=== PATIENT | female | born 1935 | race Caucasian/White ===

== ENCOUNTER 2019-05-03 10:00 | Day surgery (SDC) | payer BC ==
[2019-05-02 16:31] VITALS: BMI 25.7
[2019-05-03 12:10] VITALS: TEMP 97.9
--- NOTE | 2019-05-03 14:23 | EKG ---
Test Reason : Blood Pressure : / mmHG Vent. Rate : 062 BPM Atrial Rate : 062 BPM P-R Int : 186 ms QRS Dur : 140 ms QT Int : 434 ms P-R-T Axes : 081 -59 016 degrees QTc Int : 440 ms NORMAL SINUS RHYTHM RIGHT BUNDLE BRANCH BLOCK LEFT ANTERIOR FASCICULAR BLOCK BIFASCICULAR BLOCK ABNORMAL ECG NO PREVIOUS ECGS AVAILABLE Confirmed by FAROOQ FRAZIER, MEETA ([id number]) on 05/03/2019 2:23:02 PM Referred By: JORGE ALBERTO BRUNNER DR Confirmed By:MEETA TRIVEDI MD
[2019-05-03 15:10] VITALS: BP 156/76; PULSE 76
--- NOTE | 2019-05-04 17:49 | PATH ---
Surgical Pathology Report Patient Name: SATYA CORREA [facility]. Rec. #: [id number] /Age/Gender: 1935 (Age: 84) / F Account: [id number] Location: [facility]-ENDOSCOPY Taken: 05/03/2019 Received: 05/03/2019 Reported: 05/04/2019 Physicians: Cheyanne Dutta M.D. Specimen(s) Received RIGHT COLON POLYPS Clinical History Positive cologuard Final Diagnosis COLON, RIGHT, POLYPS, BIOPSY/POLYPECTOMY: TUBULAR ADENOMA(S). HYPERPLASTIC POLYP(S). Electronically Signed aMrsha Sellers M.D. Gross Description Received in formalin labeled "right colon polyps biopsy," is a 0.8 x 0.6 x 0.1 cm aggregate of roldan soft tissue fragments. The formalin is filtered and the specimen is entirely submitted in one cassette. /05/03/2019 saudi05/03/2019
== END 2019-05-03 13:30 | disposition home or self-care (01) ==
LOC: JASU-ENDO 10:00
PROVIDERS: ATTEND Internal Medicine Gastroenterology
PROC: 0DBK8ZX Excision of Ascending Colon, Via Natural or Artificial Opening Endoscopic, Diagnostic (ICD-10-PCS; principal; 2019-05-03 10:45)
DX: K64.8 Other hemorrhoids (principal); D12.2 Benign neoplasm of ascending colon; K57.30 Diverticulosis of large intestine without perforation or abscess without bleeding
CPT/HCPCS: 93005; 93010

== ENCOUNTER 2022-02-05 10:33 | Inpatient (IN) | payer BC ==
[2022-02-05 12:38] LABS: BASO % 0.7 % (0-2.0); EOS % 1.3 % (0-4.5); HEMATOCRIT 37.3 % (32.4-45.2); HEMOGLOBIN 12.5 GM/dL (10.7-15.3); MCH 28.2 pg (25.7-33.7); MCHC 33.4 g/dl (32.0-36.0); MEAN CELL VOLUME 84.5 fl (80-96); MEAN PLT VOLUME 10.3 fl (7.5-11.1); MONO % 8.1 % (3.8-10.2); NEUT % 70.9 % (42.8-82.8); RBC 4.41 M/mm3 (3.60-5.2); RDW 15.5 % (11.6-15.6); WHITE BLOOD COUNT 6.3 K/mm3 (4.0-10.0)
[2022-02-05 12:51] LABS: ACTIVATED PTT 23.1 SECONDS (25.2-36.5); INR 1.03 (0.83-1.09); PROTHROMBIN TIME (PATIENT) 11.8 SEC (9.7-13.0)
[2022-02-05 13:07] LABS: ALBUMIN 3.4 g/dl (3.4-5.0); BLOOD UREA NITROGEN 18.7 mg/dL (7-18); CALCIUM 8.8 mg/dL (8.5-10.1)
[2022-02-05 13:10] LABS: CREATININE 0.9 mg/dL (0.55-1.3)
[2022-02-05 13:12] LABS: BILIRUBIN,TOTAL 1.4 mg/dL (0.2-1); TOT PROT 7.1 g/dl (6.4-8.2)
[2022-02-05] MEDS ORDERED: LIDOCAINE HCL 2% (50ML VIAL) SQ ONE (13:27)
[2022-02-05] MEDS ORDERED: methylPREDNISolone NA SUCC 125 MG/2 ML VIAL IVPUSH ONE (13:28)
[2022-02-05 15:55] LABS: PLATELET COUNT 18 10^3/uL (134-434)
[2022-02-05] MEDS ORDERED: LISINOPRIL 10 MG TABLET PO ONE (17:56)
[2022-02-05 18:38] VITALS: BMI 26.4
[2022-02-05] MEDS ORDERED: DEXAMETHASONE 4 MG TABLET (FP) PO ONE (20:30)
[2022-02-05] MEDS ORDERED: amLODIPine BESYLATE 5 MG TABLET (FP) PO SCH (20:30)
[2022-02-05] MEDS: amLODIPine BESYLATE 2.5 MG TABLET (FP) PO SCH (20:33)
[2022-02-05] MEDS: GABAPENTIN 300 MG CAPSULE PO SCH (21:27)
[2022-02-05] MEDS: ATORVASTATIN CA 10 MG TABLET (FP) PO SCH (21:27)
[2022-02-05] MEDS: MELATONIN 5 MG TABLETS PO PRN (22:33)
[2022-02-06] MEDS: GABAPENTIN 300 MG CAPSULE PO SCH ×3 (06:27→22:30)
[2022-02-06] MEDS: SERTRALINE HCL 25 MG TABLET (FP) PO SCH (10:46)
[2022-02-06] MEDS: MEMANTINE HCL 10 MG TABLET (FP) PO SCH (10:46)
[2022-02-06] MEDS: amLODIPine BESYLATE 2.5 MG TABLET (FP) PO SCH (10:46)
[2022-02-06] MEDS: LISINOPRIL 10 MG TABLET PO SCH ×2 (10:46→22:29)
[2022-02-06] MEDS: DONEPEZIL HCL 10 MG TABLET (FP) PO SCH (10:46)
[2022-02-06 11:46] LABS: INR 1.08 (0.83-1.09); PROTHROMBIN TIME (PATIENT) 12.4 SEC (9.7-13.0)
[2022-02-06 11:48] LABS: HEMATOCRIT 34.8 % (32.4-45.2); HEMOGLOBIN 11.6 GM/dL (10.7-15.3); MCH 28.6 pg (25.7-33.7); MCHC 33.4 g/dl (32.0-36.0); MEAN CELL VOLUME 85.8 fl (80-96); MEAN PLT VOLUME 10.7 fl (7.5-11.1); RBC 4.05 M/mm3 (3.60-5.2); RDW 15.2 % (11.6-15.6); WHITE BLOOD COUNT 7.5 K/mm3 (4.0-10.0)
[2022-02-06 11:49] LABS: ACTIVATED PTT 24.4 SECONDS (25.2-36.5)
[2022-02-06 11:58] LABS: PLATELET COUNT 12 10^3/uL (134-434)
[2022-02-06 12:15] LABS: ALBUMIN 3.8 g/dl (3.4-5.0); BLOOD UREA NITROGEN 24.1 mg/dL (7-18); CALCIUM 8.9 mg/dL (8.5-10.1); MAGNESIUM 2.1 mg/dL (1.8-2.4)
[2022-02-06 12:18] LABS: PHOSPHOROUS 3.2 mg/dL (2.5-4.9)
[2022-02-06 12:19] LABS: BILIRUBIN,TOTAL 1.6 mg/dL (0.2-1); TOT PROT 7.8 g/dl (6.4-8.2)
[2022-02-06] MEDS ORDERED: DEXAMETHASONE 4 MG TABLET (FP) PO ONE (12:35)
[2022-02-06 13:10] LABS: HIV INTERPRETATION NEGATIVE (NEGATIVE)
[2022-02-06 13:16] LABS: ANISOCYTOSIS 0; MACROCYTOSIS 1+
[2022-02-06] MEDS: SIMETHICONE 80 MG TAB.CHEW (FP) PO PRN (22:30)
[2022-02-06] MEDS: ATORVASTATIN CA 10 MG TABLET (FP) PO SCH (22:30)
[2022-02-06] MEDS: MELATONIN 5 MG TABLETS PO PRN (22:30)
[2022-02-07] MEDS: GABAPENTIN 300 MG CAPSULE PO SCH ×3 (05:35→21:26)
[2022-02-07] MEDS: DEXAMETHASONE 4 MG TABLET (FP) PO SCH (10:11)
[2022-02-07] MEDS: LISINOPRIL 10 MG TABLET PO SCH ×2 (10:11→21:26)
[2022-02-07] MEDS: DONEPEZIL HCL 10 MG TABLET (FP) PO SCH (10:11)
[2022-02-07] MEDS: SERTRALINE HCL 25 MG TABLET (FP) PO SCH (10:11)
[2022-02-07] MEDS: amLODIPine BESYLATE 2.5 MG TABLET (FP) PO SCH (10:12)
[2022-02-07] MEDS: MEMANTINE HCL 10 MG TABLET (FP) PO SCH (10:12)
[2022-02-07 13:01] LABS: BASO % 0.1 % (0-2.0); HEMATOCRIT 31.1 % (32.4-45.2); HEMOGLOBIN 10.5 GM/dL (10.7-15.3); LYMPH % 9.9 % (8-40); MCH 28.9 pg (25.7-33.7); MCHC 33.9 g/dl (32.0-36.0); MEAN CELL VOLUME 85.3 fl (80-96); MONO % 11.7 % (3.8-10.2); NEUT % 78.3 % (42.8-82.8); RBC 3.64 M/mm3 (3.60-5.2); RDW 15.6 % (11.6-15.6)
[2022-02-07 13:07] LABS: CHLORIDE 108 mmol/L (98-107); SODIUM 141 mmol/L (136-145)
[2022-02-07 13:11] LABS: ANION GAP 7 MMOL/L (8-16); BLOOD UREA NITROGEN 31.3 mg/dL (7-18); CALCIUM 8.6 mg/dL (8.5-10.1); CO2 25 mmol/L (21-32); GLUCOSE,RANDOM 110 mg/dL (74-106)
[2022-02-07 13:12] LABS: ALBUMIN 3.4 g/dl (3.4-5.0)
[2022-02-07 13:14] LABS: CREATININE 0.9 mg/dL (0.55-1.3); SGOT/AST 23 U/L (15-37); SGPT/ALT 23 U/L (13-61)
[2022-02-07 13:17] LABS: ALK PHOS 55 U/L (45-117)
[2022-02-07 13:19] LABS: LDH 204 U/L (84-246)
[2022-02-07] MEDS ORDERED: PANTOPRAZOLE 20 MG TABLET PO ONE (19:58)
[2022-02-07] MEDS: ATORVASTATIN CA 10 MG TABLET (FP) PO SCH (21:26)
[2022-02-08] MEDS: GABAPENTIN 300 MG CAPSULE PO SCH ×3 (06:01→21:44)
[2022-02-08] MEDS: SERTRALINE HCL 25 MG TABLET (FP) PO SCH (10:12)
[2022-02-08] MEDS: LISINOPRIL 10 MG TABLET PO SCH ×2 (10:12→21:44)
[2022-02-08] MEDS: amLODIPine BESYLATE 2.5 MG TABLET (FP) PO SCH (10:12)
[2022-02-08] MEDS: DEXAMETHASONE 4 MG TABLET (FP) PO SCH (10:12)
[2022-02-08] MEDS: DONEPEZIL HCL 10 MG TABLET (FP) PO SCH (10:12)
[2022-02-08] MEDS: MEMANTINE HCL 10 MG TABLET (FP) PO SCH (10:12)
[2022-02-08 10:33] LABS: HEMOGLOBIN 10.7 GM/dL (10.7-15.3); LYMPH % 13.3 % (8-40); MCH 28.3 pg (25.7-33.7); MCHC 33.4 g/dl (32.0-36.0); MEAN CELL VOLUME 84.6 fl (80-96); MEAN PLT VOLUME 10.9 fl (7.5-11.1); MONO % 10.1 % (3.8-10.2); NEUT % 76.6 % (42.8-82.8); RBC 3.78 M/mm3 (3.60-5.2); RDW 15.6 % (11.6-15.6)
[2022-02-08 11:03] LABS: CALCIUM 8.6 mg/dL (8.5-10.1)
[2022-02-08 11:04] LABS: ALBUMIN 3.6 g/dl (3.4-5.0)
[2022-02-08 11:07] LABS: CREATININE 0.8 mg/dL (0.55-1.3); PLATELET COUNT 12 10^3/uL (134-434)
[2022-02-08 11:09] LABS: BILIRUBIN,TOTAL 0.9 mg/dL (0.2-1); TOT PROT 7.2 g/dl (6.4-8.2)
[2022-02-08] MEDS: MELATONIN 5 MG TABLETS PO PRN (21:44)
[2022-02-08] MEDS: ATORVASTATIN CA 10 MG TABLET (FP) PO SCH (21:44)
[2022-02-09] MEDS: GABAPENTIN 300 MG CAPSULE PO SCH ×3 (06:10→22:02)
[2022-02-09] MEDS: MEMANTINE HCL 10 MG TABLET (FP) PO SCH (10:39)
[2022-02-09] MEDS: LISINOPRIL 10 MG TABLET PO SCH ×2 (10:39→22:02)
[2022-02-09] MEDS: amLODIPine BESYLATE 2.5 MG TABLET (FP) PO SCH (10:39)
[2022-02-09] MEDS: SERTRALINE HCL 25 MG TABLET (FP) PO SCH (10:39)
[2022-02-09] MEDS: DONEPEZIL HCL 10 MG TABLET (FP) PO SCH (10:39)
[2022-02-09 11:00] LABS: HEMATOCRIT 30.3 % (32.4-45.2); HEMOGLOBIN 10.2 GM/dL (10.7-15.3); LYMPH % 14.7 % (8-40); MCH 28.3 pg (25.7-33.7); MCHC 33.6 g/dl (32.0-36.0); MEAN CELL VOLUME 84.2 fl (80-96); MEAN PLT VOLUME 10.4 fl (7.5-11.1); MONO % 15.8 % (3.8-10.2); NEUT % 69.5 % (42.8-82.8); RBC 3.59 M/mm3 (3.60-5.2); RDW 15.6 % (11.6-15.6); WHITE BLOOD COUNT 7.5 K/mm3 (4.0-10.0)
[2022-02-09 11:14] LABS: PLATELET COUNT 11 10^3/uL (134-434)
[2022-02-09 11:25] LABS: CALCIUM 8.5 mg/dL (8.5-10.1)
[2022-02-09 11:26] LABS: ALBUMIN 3.2 g/dl (3.4-5.0); BLOOD UREA NITROGEN 32.2 mg/dL (7-18)
[2022-02-09 11:29] LABS: CREATININE 0.8 mg/dL (0.55-1.3)
[2022-02-09 11:30] LABS: TOT PROT 6.5 g/dl (6.4-8.2)
[2022-02-09 11:31] LABS: BILIRUBIN,TOTAL 0.8 mg/dL (0.2-1)
[2022-02-09] MEDS: ATORVASTATIN CA 10 MG TABLET (FP) PO SCH (22:02)
[2022-02-09] MEDS: MELATONIN 5 MG TABLETS PO PRN (22:02)
[2022-02-09] MEDS ORDERED: GLYCERIN 1 RECTAL SUPPOSITORY, ADULT RC ONE (22:08)
[2022-02-10] MEDS: GABAPENTIN 300 MG CAPSULE PO SCH ×3 (05:41→22:28)
[2022-02-10 10:07] LABS: BASO % 0.1 % (0-2.0); EOS % 0.7 % (0-4.5); HEMATOCRIT 33.7 % (32.4-45.2); HEMOGLOBIN 11.1 GM/dL (10.7-15.3); LYMPH % 24.4 % (8-40); MCH 28.3 pg (25.7-33.7); MCHC 33.1 g/dl (32.0-36.0); MEAN CELL VOLUME 85.6 fl (80-96); MEAN PLT VOLUME 10.9 fl (7.5-11.1); MONO % 11.4 % (3.8-10.2); NEUT % 63.4 % (42.8-82.8); RBC 3.93 M/mm3 (3.60-5.2); RDW 14.8 % (11.6-15.6); WHITE BLOOD COUNT 7.6 K/mm3 (4.0-10.0)
[2022-02-10 10:11] LABS: PLATELET COUNT 9 10^3/uL (134-434)
[2022-02-10] MEDS: MEMANTINE HCL 10 MG TABLET (FP) PO SCH (10:29)
[2022-02-10] MEDS: LISINOPRIL 10 MG TABLET PO SCH ×2 (10:29→22:28)
[2022-02-10] MEDS: SERTRALINE HCL 25 MG TABLET (FP) PO SCH (10:29)
[2022-02-10] MEDS: SIMETHICONE 80 MG TAB.CHEW (FP) PO PRN (10:29)
[2022-02-10] MEDS: DONEPEZIL HCL 10 MG TABLET (FP) PO SCH (10:29)
[2022-02-10] MEDS: amLODIPine BESYLATE 2.5 MG TABLET (FP) PO SCH (10:29)
[2022-02-10 10:35] LABS: CALCIUM 8.6 mg/dL (8.5-10.1)
[2022-02-10 10:36] LABS: ALBUMIN 3.3 g/dl (3.4-5.0); BLOOD UREA NITROGEN 29.9 mg/dL (7-18); MAGNESIUM 2.2 mg/dL (1.8-2.4)
[2022-02-10 10:39] LABS: BILIRUBIN,TOTAL 0.9 mg/dL (0.2-1); CREATININE 0.8 mg/dL (0.55-1.3); PHOSPHOROUS 3.3 mg/dL (2.5-4.9)
[2022-02-10 10:40] LABS: TOT PROT 6.6 g/dl (6.4-8.2)
[2022-02-10 14:07] LABS: BABESIA MICROTI ANTIBODY IGG <1:10 (Neg:<1:10); BABESIA MICROTI ANTIBODY IGM <1:10 (Neg:<1:10)
[2022-02-10 16:08] LABS: FREE KAPPA,SERUM 35.6 mg/L (3.3-19.4)
[2022-02-10] MEDS: ATORVASTATIN CA 10 MG TABLET (FP) PO SCH (22:28)
[2022-02-11 05:37] LABS: BASO % 0.1 % (0-2.0); HEMATOCRIT 34.3 % (32.4-45.2); HEMOGLOBIN 11.4 GM/dL (10.7-15.3); LYMPH % 17.8 % (8-40); MCH 28.3 pg (25.7-33.7); MCHC 33.2 g/dl (32.0-36.0); MEAN CELL VOLUME 85.3 fl (80-96); MEAN PLT VOLUME 11.6 fl (7.5-11.1); MONO % 11.9 % (3.8-10.2); NEUT % 69.2 % (42.8-82.8); RBC 4.02 M/mm3 (3.60-5.2); RDW 15.1 % (11.6-15.6); WHITE BLOOD COUNT 7.5 K/mm3 (4.0-10.0)
[2022-02-11 06:25] LABS: PLATELET COUNT 8 10^3/uL (134-434)
[2022-02-11] MEDS: GABAPENTIN 300 MG CAPSULE PO SCH ×3 (06:25→22:36)
[2022-02-11] MEDS: DONEPEZIL HCL 10 MG TABLET (FP) PO SCH (11:18)
[2022-02-11] MEDS: amLODIPine BESYLATE 2.5 MG TABLET (FP) PO SCH (11:18)
[2022-02-11] MEDS: LISINOPRIL 10 MG TABLET PO SCH ×2 (11:18→22:34)
[2022-02-11] MEDS: SERTRALINE HCL 25 MG TABLET (FP) PO SCH (11:18)
[2022-02-11] MEDS: MEMANTINE HCL 10 MG TABLET (FP) PO SCH (11:18)
[2022-02-11] MEDS: POLYETHYLENE GLYCOL (HEALTHYLAX) 3350 17 GM PACKET PO SCH (11:18)
[2022-02-11 12:34] LABS: BASO % 0.2 % (0-2.0); EOS % 0.6 % (0-4.5); HEMATOCRIT 36.4 % (32.4-45.2); HEMOGLOBIN 12.3 GM/dL (10.7-15.3); LYMPH % 17.6 % (8-40); MCH 28.1 pg (25.7-33.7); MCHC 33.7 g/dl (32.0-36.0); MEAN CELL VOLUME 83.2 fl (80-96); MEAN PLT VOLUME 11.1 fl (7.5-11.1); NEUT % 68.6 % (42.8-82.8); RBC 4.38 M/mm3 (3.60-5.2); RDW 15.1 % (11.6-15.6); WHITE BLOOD COUNT 7.8 K/mm3 (4.0-10.0)
[2022-02-11 12:36] LABS: INR 1.14 (0.83-1.09); PROTHROMBIN TIME (PATIENT) 13.1 SEC (9.7-13.0)
[2022-02-11 12:39] LABS: PLATELET COUNT 11 10^3/uL (134-434)
[2022-02-11 13:08] LABS: ALBUMIN 3.3 g/dl (3.4-5.0); BLOOD UREA NITROGEN 24.2 mg/dL (7-18); CALCIUM 8.1 mg/dL (8.5-10.1); MAGNESIUM 1.9 mg/dL (1.8-2.4)
[2022-02-11 13:11] LABS: CREATININE 0.9 mg/dL (0.55-1.3); PHOSPHOROUS 3.2 mg/dL (2.5-4.9)
[2022-02-11 13:12] LABS: BILIRUBIN,TOTAL 1.1 mg/dL (0.2-1); TOT PROT 6.6 g/dl (6.4-8.2)
[2022-02-11] MEDS: ATORVASTATIN CA 10 MG TABLET (FP) PO SCH (22:34)
[2022-02-11] MEDS: MELATONIN 5 MG TABLETS PO PRN (22:34)
[2022-02-12] MEDS: GABAPENTIN 300 MG CAPSULE PO SCH ×3 (06:42→22:03)
[2022-02-12] MEDS: amLODIPine BESYLATE 2.5 MG TABLET (FP) PO SCH (10:42)
[2022-02-12] MEDS: MEMANTINE HCL 10 MG TABLET (FP) PO SCH (10:42)
[2022-02-12] MEDS: DONEPEZIL HCL 10 MG TABLET (FP) PO SCH (10:42)
[2022-02-12] MEDS: LISINOPRIL 10 MG TABLET PO SCH ×2 (10:42→22:03)
[2022-02-12] MEDS: SERTRALINE HCL 25 MG TABLET (FP) PO SCH (10:42)
[2022-02-12] MEDS: POLYETHYLENE GLYCOL (HEALTHYLAX) 3350 17 GM PACKET PO SCH (10:42)
[2022-02-12 12:57] LABS: BASO % 0.1 % (0-2.0); EOS % 1.5 % (0-4.5); HEMATOCRIT 34.1 % (32.4-45.2); HEMOGLOBIN 11.3 GM/dL (10.7-15.3); LYMPH % 17.3 % (8-40); MCH 27.7 pg (25.7-33.7); MCHC 33.1 g/dl (32.0-36.0); MEAN CELL VOLUME 83.6 fl (80-96); MEAN PLT VOLUME 11.4 fl (7.5-11.1); MONO % 13.7 % (3.8-10.2); NEUT % 67.4 % (42.8-82.8); RBC 4.08 M/mm3 (3.60-5.2); RDW 15.7 % (11.6-15.6); WHITE BLOOD COUNT 6.9 K/mm3 (4.0-10.0)
[2022-02-12 13:02] LABS: PLATELET COUNT 8 10^3/uL (134-434)
[2022-02-12 13:22] LABS: ALBUMIN 3.1 g/dl (3.4-5.0); BLOOD UREA NITROGEN 25.3 mg/dL (7-18); MAGNESIUM 2.2 mg/dL (1.8-2.4)
[2022-02-12 13:25] LABS: CREATININE 0.8 mg/dL (0.55-1.3); PHOSPHOROUS 2.5 mg/dL (2.5-4.9)
[2022-02-12 13:26] LABS: TOT PROT 6.3 g/dl (6.4-8.2)
[2022-02-12 16:08] LABS: HLA CLASS 1 ANTIBODY Positive (Negative)
[2022-02-12] MEDS: PANTOPRAZOLE SODIUM 40 MG VIAL IVPUSH SCH (17:54)
[2022-02-12] MEDS: ATORVASTATIN CA 10 MG TABLET (FP) PO SCH (22:03)
[2022-02-13] MEDS: GABAPENTIN 300 MG CAPSULE PO SCH ×3 (06:18→21:25)
[2022-02-13] MEDS: ATOVAQUONE 750 MG/5 ML (UNIT-DOSE PACKAGING) PO SCH (08:02)
[2022-02-13] MEDS: LISINOPRIL 10 MG TABLET PO SCH ×2 (09:19→21:25)
[2022-02-13] MEDS: MEMANTINE HCL 10 MG TABLET (FP) PO SCH (09:19)
[2022-02-13] MEDS: PANTOPRAZOLE SODIUM 40 MG VIAL IVPUSH SCH (09:20)
[2022-02-13] MEDS: POLYETHYLENE GLYCOL (HEALTHYLAX) 3350 17 GM PACKET PO SCH (09:20)
[2022-02-13] MEDS: DONEPEZIL HCL 10 MG TABLET (FP) PO SCH (09:20)
[2022-02-13] MEDS: amLODIPine BESYLATE 2.5 MG TABLET (FP) PO SCH (09:20)
[2022-02-13] MEDS: SERTRALINE HCL 25 MG TABLET (FP) PO SCH (09:20)
[2022-02-13 09:41] LABS: BASO % 0.3 % (0-2.0); HEMATOCRIT 34.7 % (32.4-45.2); HEMOGLOBIN 11.4 GM/dL (10.7-15.3); LYMPH % 18.2 % (8-40); MCH 27.5 pg (25.7-33.7); MCHC 32.7 g/dl (32.0-36.0); MEAN CELL VOLUME 84.2 fl (80-96); MEAN PLT VOLUME 11.8 fl (7.5-11.1); MONO % 14.1 % (3.8-10.2); NEUT % 63.4 % (42.8-82.8); RBC 4.12 M/mm3 (3.60-5.2); RDW 14.8 % (11.6-15.6); WHITE BLOOD COUNT 6.9 K/mm3 (4.0-10.0)
[2022-02-13] MEDS ORDERED: SULFAMETHOXAZOLE/TRIMETHOPRIM 800MG/160MG D.S. TABLET PO SCH (10:00)
[2022-02-13 10:03] LABS: PLATELET COUNT 8 10^3/uL (134-434)
[2022-02-13 10:07] LABS: CALCIUM 8.3 mg/dL (8.5-10.1)
[2022-02-13 10:08] LABS: ALBUMIN 3.3 g/dl (3.4-5.0); BLOOD UREA NITROGEN 22.4 mg/dL (7-18); MAGNESIUM 2.2 mg/dL (1.8-2.4)
[2022-02-13 10:11] LABS: CREATININE 0.9 mg/dL (0.55-1.3); PHOSPHOROUS 2.3 mg/dL (2.5-4.9)
[2022-02-13 10:12] LABS: TOT PROT 6.6 g/dl (6.4-8.2)
[2022-02-13 10:13] LABS: BILIRUBIN,TOTAL 1.2 mg/dL (0.2-1)
[2022-02-13] MEDS ORDERED: DEXAMETHASONE SOD PHOSPHATE 20 MG/5 ML VIAL IVPB SCH (12:45)
[2022-02-13] MEDS: DEXAMETHASONE SOD PHOSPHATE 10 MG/1 ML VIAL IVPB SCH (14:10)
[2022-02-13] MEDS ORDERED: NAPH,MB-DB/K PH,MBDB POWDER PACKET PO ONE (20:03)
[2022-02-13] MEDS: ATORVASTATIN CA 10 MG TABLET (FP) PO SCH (21:26)
[2022-02-14] MEDS: GABAPENTIN 300 MG CAPSULE PO SCH ×3 (06:21→22:12)
[2022-02-14 08:45] LABS: BASO % 0.2 % (0-2.0); EOS % 0.1 % (0-4.5); HEMATOCRIT 34.3 % (32.4-45.2); HEMOGLOBIN 11.2 GM/dL (10.7-15.3); LYMPH % 9.5 % (8-40); MCH 27.3 pg (25.7-33.7); MCHC 32.8 g/dl (32.0-36.0); MEAN CELL VOLUME 83.2 fl (80-96); MONO % 10.2 % (3.8-10.2); RBC 4.12 M/mm3 (3.60-5.2); RDW 14.4 % (11.6-15.6)
[2022-02-14 08:55] LABS: ALBUMIN 3.2 g/dl (3.4-5.0); BLOOD UREA NITROGEN 24.4 mg/dL (7-18); CALCIUM 8.3 mg/dL (8.5-10.1); MAGNESIUM 2.2 mg/dL (1.8-2.4)
[2022-02-14 08:58] LABS: CREATININE 0.7 mg/dL (0.55-1.3); PHOSPHOROUS 2.4 mg/dL (2.5-4.9)
[2022-02-14 09:00] LABS: BILIRUBIN,TOTAL 0.8 mg/dL (0.2-1); TOT PROT 6.8 g/dl (6.4-8.2)
[2022-02-14 09:27] LABS: PLATELET COUNT 10 10^3/uL (134-434)
[2022-02-14] MEDS: DEXAMETHASONE SOD PHOSPHATE 10 MG/1 ML VIAL IVPB SCH (09:37)
[2022-02-14] MEDS: POLYETHYLENE GLYCOL (HEALTHYLAX) 3350 17 GM PACKET PO SCH (09:37)
[2022-02-14] MEDS: amLODIPine BESYLATE 2.5 MG TABLET (FP) PO SCH (09:37)
[2022-02-14] MEDS: LISINOPRIL 10 MG TABLET PO SCH ×2 (09:37→22:12)
[2022-02-14] MEDS: PANTOPRAZOLE SODIUM 40 MG VIAL IVPUSH SCH (09:37)
[2022-02-14] MEDS: DONEPEZIL HCL 10 MG TABLET (FP) PO SCH (09:37)
[2022-02-14] MEDS: SERTRALINE HCL 25 MG TABLET (FP) PO SCH (09:38)
[2022-02-14] MEDS: ATOVAQUONE 750 MG/5 ML (UNIT-DOSE PACKAGING) PO SCH (10:02)
[2022-02-14] MEDS: MEMANTINE HCL 10 MG TABLET (FP) PO SCH (10:02)
[2022-02-14] MEDS ORDERED: NAPH,MB-DB/K PH,MBDB POWDER PACKET PO ONE (16:01)
[2022-02-14] MEDS: ATORVASTATIN CA 10 MG TABLET (FP) PO SCH (22:12)
[2022-02-15] MEDS: GABAPENTIN 300 MG CAPSULE PO SCH ×3 (05:22→21:53)
[2022-02-15] MEDS ORDERED: LISINOPRIL 20 MG TABLET PO ONE (05:58)
[2022-02-15 09:29] LABS: BASO % 0.3 % (0-2.0); EOS % 0.1 % (0-4.5); HEMOGLOBIN 11.4 GM/dL (10.7-15.3); LYMPH % 8.7 % (8-40); MCH 27.1 pg (25.7-33.7); MCHC 32.5 g/dl (32.0-36.0); MEAN CELL VOLUME 83.3 fl (80-96); MEAN PLT VOLUME 9.6 fl (7.5-11.1); NEUT % 84.9 % (42.8-82.8); RDW 15.4 % (11.6-15.6); WHITE BLOOD COUNT 12.8 K/mm3 (4.0-10.0)
[2022-02-15 09:58] LABS: ALBUMIN 3.8 g/dl (3.4-5.0); BLOOD UREA NITROGEN 25.7 mg/dL (7-18); CALCIUM 8.8 mg/dL (8.5-10.1); MAGNESIUM 2.4 mg/dL (1.8-2.4)
[2022-02-15 10:01] LABS: CREATININE 0.9 mg/dL (0.55-1.3)
[2022-02-15 10:02] LABS: PHOSPHOROUS 2.4 mg/dL (2.5-4.9)
[2022-02-15 10:03] LABS: BILIRUBIN,TOTAL 0.9 mg/dL (0.2-1); TOT PROT 7.5 g/dl (6.4-8.2)
[2022-02-15 10:05] LABS: PLATELET COUNT 23 10^3/uL (134-434)
[2022-02-15] MEDS: POLYETHYLENE GLYCOL (HEALTHYLAX) 3350 17 GM PACKET PO SCH (10:10)
[2022-02-15] MEDS: LISINOPRIL 10 MG TABLET PO SCH ×2 (10:10→21:53)
[2022-02-15] MEDS: PANTOPRAZOLE SODIUM 40 MG VIAL IVPUSH SCH (10:10)
[2022-02-15] MEDS: DEXAMETHASONE SOD PHOSPHATE 10 MG/1 ML VIAL IVPB SCH (10:10)
[2022-02-15] MEDS: DONEPEZIL HCL 10 MG TABLET (FP) PO SCH (10:10)
[2022-02-15] MEDS: MEMANTINE HCL 10 MG TABLET (FP) PO SCH (10:11)
[2022-02-15] MEDS: amLODIPine BESYLATE 2.5 MG TABLET (FP) PO SCH (10:11)
[2022-02-15] MEDS: SERTRALINE HCL 25 MG TABLET (FP) PO SCH (10:11)
[2022-02-15] MEDS: ATOVAQUONE 750 MG/5 ML (UNIT-DOSE PACKAGING) PO SCH (10:11)
[2022-02-15] MEDS: ATORVASTATIN CA 10 MG TABLET (FP) PO SCH (21:53)
[2022-02-16] MEDS: GABAPENTIN 300 MG CAPSULE PO SCH ×3 (06:43→22:29)
[2022-02-16 08:10] LABS: BASO % 0.1 % (0-2.0); EOS % 0.1 % (0-4.5); HEMATOCRIT 36.5 % (32.4-45.2); HEMOGLOBIN 11.8 GM/dL (10.7-15.3); LYMPH % 10.8 % (8-40); MCH 27.2 pg (25.7-33.7); MCHC 32.4 g/dl (32.0-36.0); MEAN CELL VOLUME 83.9 fl (80-96); MEAN PLT VOLUME 11.5 fl (7.5-11.1); MONO % 10.8 % (3.8-10.2); NEUT % 78.2 % (42.8-82.8); RBC 4.35 M/mm3 (3.60-5.2); RDW 14.8 % (11.6-15.6); WHITE BLOOD COUNT 11.4 K/mm3 (4.0-10.0)
[2022-02-16 08:31] LABS: PLATELET COUNT 10 10^3/uL (134-434)
[2022-02-16 08:32] LABS: CALCIUM 8.8 mg/dL (8.5-10.1)
[2022-02-16 08:33] LABS: ALBUMIN 3.6 g/dl (3.4-5.0); BLOOD UREA NITROGEN 29.6 mg/dL (7-18); MAGNESIUM 2.3 mg/dL (1.8-2.4)
[2022-02-16 08:36] LABS: CREATININE 0.8 mg/dL (0.55-1.3); PHOSPHOROUS 2.5 mg/dL (2.5-4.9)
[2022-02-16 08:37] LABS: BILIRUBIN,TOTAL 1.1 mg/dL (0.2-1); TOT PROT 7.3 g/dl (6.4-8.2)
[2022-02-16] MEDS: LISINOPRIL 10 MG TABLET PO SCH ×2 (09:21→22:29)
[2022-02-16] MEDS: PANTOPRAZOLE SODIUM 40 MG VIAL IVPUSH SCH (09:21)
[2022-02-16] MEDS: POLYETHYLENE GLYCOL (HEALTHYLAX) 3350 17 GM PACKET PO SCH (09:21)
[2022-02-16] MEDS: MEMANTINE HCL 10 MG TABLET (FP) PO SCH (09:21)
[2022-02-16] MEDS: amLODIPine BESYLATE 2.5 MG TABLET (FP) PO SCH (09:21)
[2022-02-16] MEDS: DONEPEZIL HCL 10 MG TABLET (FP) PO SCH (09:21)
[2022-02-16] MEDS: SERTRALINE HCL 25 MG TABLET (FP) PO SCH (09:21)
[2022-02-16] MEDS: ATOVAQUONE 750 MG/5 ML (UNIT-DOSE PACKAGING) PO SCH (09:22)
[2022-02-16] MEDS: DEXAMETHASONE SOD PHOSPHATE 10 MG/1 ML VIAL IVPB SCH (09:22)
[2022-02-16] MEDS: IMMUNE GLOBULIN (IgG) 20 GM VIAL (PRIVIGEN) IVPB SCH ×2 (17:08→18:34)
[2022-02-16] MEDS ORDERED: diphenhydrAMINE HCL 25 MG CAPSULE (FP) PO ONE (17:41)
[2022-02-16] MEDS ORDERED: ACETAMINOPHEN 325 MG TABLET (FP) PO ONE (17:42)
[2022-02-16 19:17] LABS: PROTHROMBIN TIME (PATIENT) 11.5 SEC (9.7-13.0)
[2022-02-16 19:20] LABS: ACTIVATED PTT 23.2 SECONDS (25.2-36.5)
[2022-02-16] MEDS: ATORVASTATIN CA 10 MG TABLET (FP) PO SCH (22:29)
[2022-02-17] MEDS: GABAPENTIN 300 MG CAPSULE PO SCH ×3 (05:31→21:35)
[2022-02-17 09:20] LABS: BASO % 0.2 % (0-2.0); HEMATOCRIT 34.3 % (32.4-45.2); HEMOGLOBIN 11.1 GM/dL (10.7-15.3); LYMPH % 13.4 % (8-40); MCH 27.1 pg (25.7-33.7); MCHC 32.5 g/dl (32.0-36.0); MEAN CELL VOLUME 83.4 fl (80-96); MEAN PLT VOLUME 11.1 fl (7.5-11.1); MONO % 16.1 % (3.8-10.2); NEUT % 70.3 % (42.8-82.8); RBC 4.11 M/mm3 (3.60-5.2); RDW 15.2 % (11.6-15.6); WHITE BLOOD COUNT 10.3 K/mm3 (4.0-10.0)
[2022-02-17 09:30] LABS: PLATELET COUNT 13 10^3/uL (134-434)
[2022-02-17 09:42] LABS: CALCIUM 8.9 mg/dL (8.5-10.1)
[2022-02-17 09:43] LABS: ALBUMIN 3.4 g/dl (3.4-5.0); MAGNESIUM 2.3 mg/dL (1.8-2.4)
[2022-02-17 09:47] LABS: TOT PROT 8.6 g/dl (6.4-8.2)
[2022-02-17 09:49] LABS: BILIRUBIN,TOTAL 0.9 mg/dL (0.2-1); CREATININE 0.8 mg/dL (0.55-1.3); PHOSPHOROUS 2.3 mg/dL (2.5-4.9)
[2022-02-17] MEDS: LISINOPRIL 10 MG TABLET PO SCH ×2 (10:26→21:35)
[2022-02-17] MEDS: PANTOPRAZOLE SODIUM 40 MG VIAL IVPUSH SCH (10:26)
[2022-02-17] MEDS: predniSONE 20 MG TABLET (UD) PO SCH (10:26)
[2022-02-17] MEDS: ATOVAQUONE 750 MG/5 ML (UNIT-DOSE PACKAGING) PO SCH (10:27)
[2022-02-17] MEDS: DONEPEZIL HCL 10 MG TABLET (FP) PO SCH (10:27)
[2022-02-17] MEDS: MEMANTINE HCL 10 MG TABLET (FP) PO SCH (10:27)
[2022-02-17] MEDS: POLYETHYLENE GLYCOL (HEALTHYLAX) 3350 17 GM PACKET PO SCH (10:27)
[2022-02-17] MEDS: amLODIPine BESYLATE 2.5 MG TABLET (FP) PO SCH (10:27)
[2022-02-17] MEDS ORDERED: NAPH,MB-DB/K PH,MBDB POWDER PACKET PO ONE (10:46)
[2022-02-17] MEDS ORDERED: ACETAMINOPHEN 325 MG TABLET (FP) PO PRN (13:10)
[2022-02-17] MEDS ORDERED: diphenhydrAMINE HCL 25 MG CAPSULE (FP) PO ONE ×2 (13:11)
[2022-02-17] MEDS ORDERED: NAPH,MB-DB/K PH,MBDB POWDER PACKET PO SCH (14:00)
[2022-02-17 16:07] LABS: E.chaff HME IgG Negative (Neg:<1:64)
[2022-02-17] MEDS: IMMUNE GLOBULIN (IgG) 20 GM VIAL (PRIVIGEN) IVPB SCH (17:31)
[2022-02-17] MEDS: ATORVASTATIN CA 10 MG TABLET (FP) PO SCH (21:35)
[2022-02-18] MEDS: GABAPENTIN 300 MG CAPSULE PO SCH ×3 (05:33→21:29)
[2022-02-18] MEDS: amLODIPine BESYLATE 2.5 MG TABLET (FP) PO SCH ×2 (05:44→09:48)
[2022-02-18] MEDS: LISINOPRIL 10 MG TABLET PO SCH ×3 (05:46→21:29)
[2022-02-18] MEDS ORDERED: ACETAMINOPHEN 1000 MG/100 ML BAG IVPB ONE (07:53)
[2022-02-18] MEDS: ATOVAQUONE 750 MG/5 ML (UNIT-DOSE PACKAGING) PO SCH (08:47)
[2022-02-18] MEDS: PANTOPRAZOLE SODIUM 40 MG VIAL IVPUSH SCH (09:47)
[2022-02-18] MEDS: POLYETHYLENE GLYCOL (HEALTHYLAX) 3350 17 GM PACKET PO SCH (09:47)
[2022-02-18] MEDS: predniSONE 20 MG TABLET (UD) PO SCH (09:48)
[2022-02-18] MEDS: MEMANTINE HCL 10 MG TABLET (FP) PO SCH (09:48)
[2022-02-18] MEDS: DONEPEZIL HCL 10 MG TABLET (FP) PO SCH (09:48)
[2022-02-18 11:06] LABS: EPI CELLS 6 /uL (0-25.1); HYALINE CASTS 0 /uL (0-3.1); PH,URINE 5.5 (5.0-8.0); URINE APPEARANCE CLEAR; URINE BACTERIA 17 /uL (0-1359); URINE BILIRUBIN NEGATIVE (NEGATIVE); URINE COLOR YELLOW; URINE GLUCOSE (UA) NEGATIVE (NEGATIVE); URINE KETONE NEGATIVE (NEGATIVE); URINE LEUK ESTERASE NEGATIVE (NEGATIVE); URINE NITRITE NEGATIVE (NEGATIVE); URINE PROTEIN NEGATIVE (NEGATIVE); URINE RBC 36 /uL (0-23.9); URINE WBC 9 /uL (0-25.8)
[2022-02-18 12:34] LABS: BASO % 0.1 % (0-2.0); EOS % 0.1 % (0-4.5); HEMATOCRIT 30.1 % (32.4-45.2); LYMPH % 9.2 % (8-40); MCH 27.4 pg (25.7-33.7); MCHC 33.1 g/dl (32.0-36.0); MEAN CELL VOLUME 82.7 fl (80-96); MEAN PLT VOLUME 11.5 fl (7.5-11.1); MONO % 12.3 % (3.8-10.2); NEUT % 78.3 % (42.8-82.8); RBC 3.64 M/mm3 (3.60-5.2); RDW 14.7 % (11.6-15.6); WHITE BLOOD COUNT 11.6 K/mm3 (4.0-10.0)
[2022-02-18 12:45] LABS: PLATELET COUNT 8 10^3/uL (134-434)
[2022-02-18 13:54] LABS: ALBUMIN 2.8 g/dl (3.4-5.0)
[2022-02-18 13:55] LABS: BLOOD UREA NITROGEN 30.1 mg/dL (7-18); CALCIUM 8.2 mg/dL (8.5-10.1); MAGNESIUM 1.8 mg/dL (1.8-2.4)
[2022-02-18 14:03] LABS: PHOSPHOROUS 2.5 mg/dL (2.5-4.9)
[2022-02-18 14:04] LABS: TOT PROT 8.3 g/dl (6.4-8.2)
[2022-02-18 14:05] LABS: BILIRUBIN,TOTAL 0.8 mg/dL (0.2-1)
[2022-02-18] MEDS: ATORVASTATIN CA 10 MG TABLET (FP) PO SCH (21:29)
[2022-02-18 22:41] VITALS: RESP 18
[2022-02-19] MEDS: GABAPENTIN 300 MG CAPSULE PO SCH ×3 (06:23→21:18)
[2022-02-19] MEDS: POLYETHYLENE GLYCOL (HEALTHYLAX) 3350 17 GM PACKET PO SCH (09:17)
[2022-02-19] MEDS: ATOVAQUONE 750 MG/5 ML (UNIT-DOSE PACKAGING) PO SCH (09:17)
[2022-02-19] MEDS: LISINOPRIL 10 MG TABLET PO SCH ×2 (09:17→21:18)
[2022-02-19] MEDS: amLODIPine BESYLATE 2.5 MG TABLET (FP) PO SCH (09:17)
[2022-02-19] MEDS: predniSONE 20 MG TABLET (UD) PO SCH (09:18)
[2022-02-19] MEDS: DONEPEZIL HCL 10 MG TABLET (FP) PO SCH (09:18)
[2022-02-19] MEDS: PANTOPRAZOLE SODIUM 40 MG VIAL IVPUSH SCH (09:18)
[2022-02-19] MEDS: MEMANTINE HCL 10 MG TABLET (FP) PO SCH (12:36)
[2022-02-19 16:30] LABS: BASO % 0.1 % (0-2.0); HEMATOCRIT 31.1 % (32.4-45.2); HEMOGLOBIN 10.6 GM/dL (10.7-15.3); LYMPH % 7.6 % (8-40); MCHC 34.2 g/dl (32.0-36.0); MEAN CELL VOLUME 82.1 fl (80-96); MEAN PLT VOLUME 10.4 fl (7.5-11.1); MONO % 3.2 % (3.8-10.2); NEUT % 89.1 % (42.8-82.8); RBC 3.79 M/mm3 (3.60-5.2); RDW 14.9 % (11.6-15.6); WHITE BLOOD COUNT 10.2 K/mm3 (4.0-10.0)
[2022-02-19 16:35] LABS: PLATELET COUNT 9 10^3/uL (134-434)
[2022-02-19 16:53] LABS: CALCIUM 8.1 mg/dL (8.5-10.1)
[2022-02-19 16:54] LABS: BLOOD UREA NITROGEN 32.5 mg/dL (7-18); MAGNESIUM 1.9 mg/dL (1.8-2.4)
[2022-02-19 16:57] LABS: PHOSPHOROUS 2.7 mg/dL (2.5-4.9)
[2022-02-19 16:59] LABS: BILIRUBIN,TOTAL 0.9 mg/dL (0.2-1); TOT PROT 8.1 g/dl (6.4-8.2)
[2022-02-19] MEDS: ATORVASTATIN CA 10 MG TABLET (FP) PO SCH (21:18)
[2022-02-20] MEDS: GABAPENTIN 300 MG CAPSULE PO SCH ×3 (05:52→21:43)
[2022-02-20 08:16] LABS: HEMATOCRIT 32.5 % (32.4-45.2); HEMOGLOBIN 11.1 GM/dL (10.7-15.3); MCH 28.1 pg (25.7-33.7); MCHC 34.2 g/dl (32.0-36.0); MEAN CELL VOLUME 82.1 fl (80-96); MEAN PLT VOLUME 10.9 fl (7.5-11.1); RBC 3.96 M/mm3 (3.60-5.2); RDW 15.2 % (11.6-15.6); WHITE BLOOD COUNT 10.3 K/mm3 (4.0-10.0)
[2022-02-20 08:44] LABS: PLATELET COUNT 11 10^3/uL (134-434)
[2022-02-20 09:03] LABS: ALBUMIN 2.9 g/dl (3.4-5.0); CALCIUM 8.4 mg/dL (8.5-10.1)
[2022-02-20 09:04] LABS: BLOOD UREA NITROGEN 28.7 mg/dL (7-18); MAGNESIUM 1.9 mg/dL (1.8-2.4)
[2022-02-20 09:06] LABS: CREATININE 0.8 mg/dL (0.55-1.3); PHOSPHOROUS 2.7 mg/dL (2.5-4.9)
[2022-02-20 09:08] LABS: BILIRUBIN,TOTAL 1.1 mg/dL (0.2-1); TOT PROT 8.2 g/dl (6.4-8.2)
[2022-02-20] MEDS: PANTOPRAZOLE SODIUM 40 MG VIAL IVPUSH SCH (09:32)
[2022-02-20] MEDS: amLODIPine BESYLATE 2.5 MG TABLET (FP) PO SCH (09:33)
[2022-02-20] MEDS: MEMANTINE HCL 10 MG TABLET (FP) PO SCH (09:33)
[2022-02-20] MEDS: predniSONE 20 MG TABLET (UD) PO SCH (09:33)
[2022-02-20] MEDS: POLYETHYLENE GLYCOL (HEALTHYLAX) 3350 17 GM PACKET PO SCH (09:33)
[2022-02-20] MEDS: LISINOPRIL 10 MG TABLET PO SCH ×2 (09:33→21:43)
[2022-02-20] MEDS: DONEPEZIL HCL 10 MG TABLET (FP) PO SCH (09:33)
[2022-02-20 10:42] LABS: ANISOCYTOSIS 1+; MACROCYTOSIS 0
[2022-02-20] MEDS ORDERED: ROMIPLOSTIM 125 MCG SQ ONE (13:13)
[2022-02-20] MEDS ORDERED: BACITRACIN 15 GM TUBE TOPICAL OINTMENT TP ONE (14:55)
[2022-02-20] MEDS: ATORVASTATIN CA 10 MG TABLET (FP) PO SCH (21:43)
[2022-02-21] MEDS: GABAPENTIN 300 MG CAPSULE PO SCH ×3 (06:16→21:40)
[2022-02-21 09:20] LABS: BASO % 0.4 % (0-2.0); EOS % 0.3 % (0-4.5); HEMATOCRIT 33.9 % (32.4-45.2); HEMOGLOBIN 11.3 GM/dL (10.7-15.3); LYMPH % 23.9 % (8-40); MCH 27.5 pg (25.7-33.7); MCHC 33.4 g/dl (32.0-36.0); MEAN CELL VOLUME 82.1 fl (80-96); MEAN PLT VOLUME 11.3 fl (7.5-11.1); MONO % 13.5 % (3.8-10.2); NEUT % 61.9 % (42.8-82.8); RBC 4.13 M/mm3 (3.60-5.2); RDW 15.3 % (11.6-15.6); WHITE BLOOD COUNT 10.3 K/mm3 (4.0-10.0)
[2022-02-21 09:26] LABS: PLATELET COUNT 14 10^3/uL (134-434)
[2022-02-21] MEDS: MEMANTINE HCL 10 MG TABLET (FP) PO SCH (09:50)
[2022-02-21] MEDS: amLODIPine BESYLATE 2.5 MG TABLET (FP) PO SCH (09:50)
[2022-02-21] MEDS: LISINOPRIL 10 MG TABLET PO SCH ×2 (09:50→21:41)
[2022-02-21] MEDS: PANTOPRAZOLE SODIUM 40 MG VIAL IVPUSH SCH (09:50)
[2022-02-21] MEDS: DONEPEZIL HCL 10 MG TABLET (FP) PO SCH (09:50)
[2022-02-21] MEDS: POLYETHYLENE GLYCOL (HEALTHYLAX) 3350 17 GM PACKET PO SCH (09:50)
[2022-02-21] MEDS: predniSONE 20 MG TABLET (UD) PO SCH (09:50)
[2022-02-21 09:59] LABS: ALBUMIN 2.9 g/dl (3.4-5.0); BLOOD UREA NITROGEN 28.2 mg/dL (7-18); CALCIUM 8.4 mg/dL (8.5-10.1); MAGNESIUM 1.9 mg/dL (1.8-2.4)
[2022-02-21 10:02] LABS: CREATININE 0.7 mg/dL (0.55-1.3); PHOSPHOROUS 2.9 mg/dL (2.5-4.9)
[2022-02-21] MEDS: ATORVASTATIN CA 10 MG TABLET (FP) PO SCH (21:40)
[2022-02-22] MEDS: GABAPENTIN 300 MG CAPSULE PO SCH ×2 (05:08→13:20)
[2022-02-22 09:51] LABS: HEMATOCRIT 35.1 % (32.4-45.2); HEMOGLOBIN 11.7 GM/dL (10.7-15.3); MCH 27.5 pg (25.7-33.7); MCHC 33.3 g/dl (32.0-36.0); MEAN CELL VOLUME 82.6 fl (80-96); MEAN PLT VOLUME 11.1 fl (7.5-11.1); RBC 4.25 M/mm3 (3.60-5.2); RDW 15.3 % (11.6-15.6)
[2022-02-22] MEDS: POLYETHYLENE GLYCOL (HEALTHYLAX) 3350 17 GM PACKET PO SCH (09:52)
[2022-02-22] MEDS: predniSONE 20 MG TABLET (UD) PO SCH (09:53)
[2022-02-22] MEDS: DONEPEZIL HCL 10 MG TABLET (FP) PO SCH (09:53)
[2022-02-22] MEDS: LISINOPRIL 10 MG TABLET PO SCH (09:53)
[2022-02-22] MEDS: MEMANTINE HCL 10 MG TABLET (FP) PO SCH (09:53)
[2022-02-22 09:56] LABS: CALCIUM 8.5 mg/dL (8.5-10.1)
[2022-02-22] MEDS: amLODIPine BESYLATE 2.5 MG TABLET (FP) PO SCH (09:56)
[2022-02-22] MEDS: PANTOPRAZOLE SODIUM 40 MG VIAL IVPUSH SCH (09:56)
[2022-02-22 09:57] LABS: BLOOD UREA NITROGEN 27.3 mg/dL (7-18)
[2022-02-22 10:00] LABS: CREATININE 0.9 mg/dL (0.55-1.3)
[2022-02-22 10:01] LABS: PLATELET COUNT 15 10^3/uL (134-434)
[2022-02-22 12:29] LABS: ANISOCYTOSIS 0; MACROCYTOSIS 0
[2022-02-22 17:21] VITALS: BP 156/68; PULSE 65; TEMP 97.9
== END 2022-02-22 17:28 | disposition home or self-care (01) | DRG 813 ==
LOC: JER 10:33 → JERBED 13:35 → J5S 16:30 → J7W 02-13 18:50
PROVIDERS: ADMIT Internal Medicine; ATTEND Internal Medicine
PROC: 30233R1 Transfusion of Nonautologous Platelets into Peripheral Vein, Percutaneous Approach (ICD-10-PCS; principal; 2022-02-10)
DX: D69.3 Immune thrombocytopenic purpura (principal); J98.11 Atelectasis; I10 Essential (primary) hypertension; E78.5 Hyperlipidemia, unspecified; F03.90 Unspecified dementia, unspecified severity, without behavioral disturbance, psychotic disturbance, mood disturbance, and anxiety; E04.1 Nontoxic single thyroid nodule; K59.00 Constipation, unspecified; R31.9 Hematuria, unspecified
CPT/HCPCS: 36415; 36430; 36511; 76700-TC; 80048; 80053; 81003; 82607; 82747; 82784; 82930; 83615; 83735; 83883; 84100; 84155; 84165; 84439; 84443; 84550; 85014; 85025; 85032; 85362; 85379; 85384; 85610; 85651; 85730; 86022; 86038; 86140; 86334; 86431; 86618; 86666; 86753; 86850; 86900; 86901; 87040; 87086; 87389; 88300-TC; 93306-TC; 94010; 97116-GP; 97162-GP; 99285-25; C9803-CS; J1100; J1459; P9034; P9038; U0003; U0005

== ENCOUNTER 2022-02-26 09:30 | Emergency (ER) | payer BC ==
[2022-02-26 09:39] VITALS: BMI 24.3
[2022-02-26 12:14] LABS: BASO % 0.4 % (0-2.0); EOS % 0.3 % (0-4.5); HEMATOCRIT 34.9 % (32.4-45.2); HEMOGLOBIN 11.7 GM/dL (10.7-15.3); LYMPH % 8.1 % (8-40); MCHC 33.6 g/dl (32.0-36.0); MEAN CELL VOLUME 83.3 fl (80-96); MEAN PLT VOLUME 10.3 fl (7.5-11.1); MONO % 6.1 % (3.8-10.2); NEUT % 85.1 % (42.8-82.8); PLATELET COUNT 110 10^3/uL (134-434); RBC 4.19 M/mm3 (3.60-5.2); RDW 15.8 % (11.6-15.6)
[2022-02-26 12:45] LABS: BLOOD UREA NITROGEN 40.6 mg/dL (7-18)
[2022-02-26 12:50] LABS: BILIRUBIN,TOTAL 0.7 mg/dL (0.2-1); TOT PROT 7.4 g/dl (6.4-8.2)
[2022-02-26 13:24] LABS: INR 0.99 (0.83-1.09); PROTHROMBIN TIME (PATIENT) 11.4 SEC (9.7-13.0)
[2022-02-26 14:15] VITALS: BP 133/68; PULSE 75; RESP 19; TEMP 97.9
== END 2022-02-26 14:14 | disposition home or self-care (01) ==
LOC: JER 09:30
DX: D69.6 Thrombocytopenia, unspecified (principal)
CPT/HCPCS: 36415; 71045-TC-FY; 80053; 85025; 85610; 85730; 86850; 86900; 86901; 93005; 93010; 99285-25; C9803-CS; U0003; U0005